=== PATIENT | female | born 1990 ===

== ENCOUNTER 2018-01-23 21:02 | Emergency (ER) | payer BC, MEDICAID ==
[2018-01-23 21:02] VITALS: BMI 24.9
[2018-01-23 21:33] VITALS: BP 125/72; PULSE 90; RESP 22; TEMP 99; O2SAT 98
--- NOTE | 2018-01-23 21:42 | C.PDOC ---
History Of Present Illness 27 yo female c/o sore throat x4 days associated with subjective fever, chills, and body aches. (+) nasal congestion. Denies difficulty breathing, difficulty swallowing, sob, chest pain or cough. Took mucinex for the symptoms at 6pm today. Time Seen by Provider: 01/23/18 21:18 Chief Complaint (Nursing): ENT Problem History Per: Patient History/Exam Limitations: None Onset/Duration Of Symptoms: Days Current Symptoms Are (Timing): Still Present Past Medical History Vital Signs: Last Vital Signs Temp 99 F 01/23/18 21:23 Pulse 90 01/23/18 21:23 Resp 22 01/23/18 21:23 BP 125/72 01/23/18 21:23 Pulse Ox 98 01/23/18 21:44 Family History: States: Unknown Family Hx - Social History Hx Tobacco Use: No Hx Alcohol Use: No Hx Substance Use: No - Immunization History Hx Tetanus Toxoid Vaccination: No Hx Influenza Vaccination: No Hx Pneumococcal Vaccination: No Review Of Systems Except As Marked, All Systems Reviewed And Found Negative. Constitutional: Positive for: Fever, Chills ENT: Positive for: Nose Congestion, Throat Pain Physical Exam - Physical Exam Appears: Well, Non-toxic, No Acute Distress Skin: Normal Color, Warm, Dry Head: Atraumatic, Normacephalic Eye(s): bilateral: Normal Inspection, PERRL, EOMI Ear(s): Bilateral: Normal Nose: Normal Oral Mucosa: Moist Throat: Erythema, Exudate, No Drooling Neck: Normal, Normal ROM, Supple Lymphatic: Normal Exam Chest: Symmetrical Cardiovascular: Rhythm Regular Respiratory: Normal Breath Sounds, No Accessory Muscle Use Gastrointestinal/Abdominal: Normal Exam, Soft, No Tenderness Back: Normal Inspection Extremity: Normal ROM Neurological/Psych: Oriented x3, Normal Speech, Normal Cognition ED Course And Treatment O2 Sat by Pulse Oximetry: 98 Progress Note: Pt was instructed hydration, symptomatic treatment and instructed to follow up with PMD in 1-2 days. Disposition - Disposition Disposition: HOME/ ROUTINE Disposition Time: 21:43 Condition: STABLE Additional Instructions: Follow up with your doctor in 1-2 days. Return to ER if symptoms persist or worsen. Prescriptions: Amoxicillin 875 mg PO BID #14 tablet Ibuprofen [Motrin] 600 mg PO Q6 PRN #20 tab PRN Reason: Pain, Mild (1-3) Instructions: Sore Throat, Adult (DC) Forms: [facility] (Macedonian), Work Excuse - Clinical Impression Clinical Impression: Pharyngitis
[2018-01-23] MEDS: Naproxen 550 mg Tab PO STA (22:28)
[2018-01-23] MEDS ORDERED: Naproxen 550 mg Tab PO ONE (22:29)
== END 2018-01-23 22:31 | disposition home or self-care (01) ==
LOC: C.ER 21:02
DX: J02.9 Acute pharyngitis, unspecified (principal)